=== PATIENT | female | born 2000 ===

== ENCOUNTER 2020-07-25 23:15 | Emergency (ER) | payer BC ==
[~2020-07-25] VITALS: Ht 162.6 cm; Wt 69.5 kg
[2020-07-25 23:30] VITALS: TEMP 98.7
[2020-07-26 02:27] LABS: BASO # 0.1 (0.0-0.2); BASO % 0.5 % (0.0-2.0); EOS # 0.3 (0.0-0.7); EOS % 2.7 % (0-4.0); GRAN # 6.7 (1.4-6.5); GRAN % 63.3 % (42.2-75.2); HEMATOCRIT 38.2 % (37.0-47.0); HEMOGLOBIN 12.7 g/dl (12.5-16.0); LYMPH # 2.9 (1.2-3.4); LYMPH % 27.3 % (20.0-51.0); MEAN CELL VOLUME 87 fl (80.0-100.0); MEAN CORPUSCULAR HEMOGLOBIN 29 pg (27.0-31.0); MEAN CORPUSCULAR HGB CONC 33 g/dl (33.0-37.0); MONO # 0.6 (0.1-0.6); MONO % 5.6 % (1.7-9.3); PLATELET COUNT 253 K/mm3 (130-400); RED BLOOD COUNT 4.38 M/mm3 (4.10-5.30); REDCELL DISTRIBUTION WIDTH-CV 12.8 % (11.5-14.5)
[2020-07-26 02:31] LABS: INR 1.1 (0.8-3.0)
[2020-07-26 02:34] LABS: PARTIAL THROMBOPLASTIN TIME 32.7 SECONDS (26.0-37.0)
[2020-07-26 02:37] LABS: ALANINE AMINOTRANSFERASE 17 U/L (4-34); ALBUMIN 4.5 gm/dL (3.5-5.0); ALKALINE PHOSPHATASE 64 U/L (50-136); ANION GAP 7 mmol/L (7-16); AST,SGOT 21 U/L (15-37); BILIRUBIN,TOTAL 0.5 mg/dL (0.0-1.0); BLOOD UREA NITROGEN 13 mg/dL (7-17); CALCIUM 9.1 mg/dL (8.4-10.2); CARBON DIOXIDE 27 mmol/L (22-30); CHLORIDE 106 mmol/L (98-107); CREATININE, serum 0.68 (0.52-1.25); GLUCOSE 98 mg/dL (74-106); LIPASE 48 U/L (23-300); SODIUM 140 mmol/L (137-145); TOTAL PROTEIN 7.4 gm/dL (6.4-8.2)
[2020-07-26 02:38] LABS: C-REACTIVE PROTEIN < 0.5 mg/dL (0.0-0.9)
[2020-07-26 03:08] LABS: COLLECTION METHOD CLEAN CATCH
[2020-07-26 03:16] LABS: MUCOUS Present /lpf; PH 5 (5-8); URINE APPEARANCE Hazy; URINE BACTERIA Rare /hpf; URINE BILIRUBIN Negative (NEGATIVE); URINE BLOOD Negative (NEGATIVE); URINE COLOR Yellow; URINE GLUCOSE Negative (NEGATIVE); URINE KETONE Negative (NEGATIVE); URINE LEUKOCYTE ESTERASE Negative (NEGATIVE); URINE NITRATE Negative (NEGATIVE); URINE PROTEIN(semi-quant) Negative (NEGATIVE); URINE RBC 0-2 /hpf; URINE UROBILINOGEN Negative (NEGATIVE)
[2020-07-26] MEDS ORDERED: ZOFRAN ODT4 MG PO (04:30)
[2020-07-26] MEDS ORDERED: CARAFATE 1GM1 G PO (04:30)
[2020-07-26] MEDS ORDERED: PRIL40 PO (04:30)
[2020-07-26 04:43] VITALS: BP 118/75; PULSE 82
== END 2020-07-26 04:43 | disposition home or self-care (01) ==
LOC: COL.ER 23:15
PROVIDERS: Emergency Medicine
DX: K29.70 Gastritis, unspecified, without bleeding (principal); K22.6 Gastro-esophageal laceration-hemorrhage syndrome; Z79.1 Long term (current) use of non-steroidal anti-inflammatories (NSAID)
CPT/HCPCS: C9113; J2550

== ENCOUNTER 2020-07-26 12:58 | Emergency (ER) | payer BC ==
[~2020-07-26] VITALS: Ht 162.6 cm; Wt 69.5 kg
[~2020-07-26 12:58] MED LIST: CARAFATE 1GM1 G PO; PRIL40 PO; ZOFRAN ODT4 MG PO
[2020-07-26 13:03] VITALS: TEMP 97
[2020-07-26 16:20] VITALS: BP 97/74; PULSE 86
== END 2020-07-26 16:22 | disposition home or self-care (01) ==
LOC: COL.ER 12:58
DX: R11.2 Nausea with vomiting, unspecified (principal); R10.31 Right lower quadrant pain; R10.32 Left lower quadrant pain; Z32.02 Encounter for pregnancy test, result negative
CPT/HCPCS: J2405; J7030; Q9967

== ENCOUNTER 2020-08-27 09:58 | Day surgery (SDC) | payer BC ==
[2020-08-27] VITALS (10 sets, daily range): BP systolic 98–125; BP diastolic 47–80; PULSE 71–88; TEMP 98.6–98.9
[~2020-08-27] VITALS: Ht 162.6 cm; Wt 70.0 kg
[~2020-08-27 09:58] MED LIST changes: +FLEXERIL5 MG PO; +LEVSIN0.125 M1 PO
== END 2020-08-27 13:20 | disposition home or self-care (01) ==
LOC: SDCO 09:58
DX: K92.0 Hematemesis (principal); F41.9 Anxiety disorder, unspecified; F32.9 Major depressive disorder, single episode, unspecified
CPT/HCPCS: J2405; J2704; J7030

== ENCOUNTER 2020-09-27 12:07 | Emergency (ER) | payer BC ==
[~2020-09-27] VITALS: Ht 162.6 cm; Wt 68.2 kg
[2020-09-27 12:10] VITALS: TEMP 98.1
[2020-09-27] MEDS ORDERED: ZOFRAN ODT4 MG PO (12:48)
[2020-09-27 12:49] VITALS: BP 111/76; PULSE 81
== END 2020-09-27 12:56 | disposition home or self-care (01) ==
LOC: COL.ER 12:07
DX: K29.71 Gastritis, unspecified, with bleeding (principal); M54.9 Dorsalgia, unspecified

== ENCOUNTER 2021-08-10 07:16 | Emergency (ER) | payer BC ==
[~2021-08-10] VITALS: Ht 162.6 cm; Wt 72.7 kg
[2021-08-10 07:23] VITALS: TEMP 97.5
[2021-08-10 07:42] LABS: BASO % 0.3 % (0.0-2.0); EOS % 0.4 % (0-4.0); GRAN # 7.3 K/mm3 (1.4-6.5); GRAN % 75.7 % (42.2-75.2); HEMATOCRIT 41.3 % (37.0-47.0); HEMOGLOBIN 13.9 g/dl (12.5-16.0); LYMPH # 1.9 K/mm3 (1.2-3.4); LYMPH % 19.1 % (20.0-51.0); MEAN CELL VOLUME 85 fl (80.0-100.0); MEAN CORPUSCULAR HEMOGLOBIN 29 pg (27.0-31.0); MEAN CORPUSCULAR HGB CONC 34 g/dl (33.0-37.0); MEAN PLATELET VOLUME 11.2 fl (7.4-10.4); MONO # 0.4 K/mm3 (0.1-0.6); PLATELET COUNT 358 K/mm3 (130-400); RED BLOOD COUNT 4.86 M/mm3 (4.10-5.30); REDCELL DISTRIBUTION WIDTH-CV 12.6 % (11.5-14.5)
[2021-08-10 07:51] LABS: COLLECTION METHOD CLEAN CATCH
[2021-08-10 07:57] LABS: ALANINE AMINOTRANSFERASE 12 U/L (0-55); ALKALINE PHOSPHATASE 85 U/L (40-150); ANION GAP 14 mmol/L (7-16); AST,SGOT 17 U/L (5-34); BILIRUBIN,TOTAL 0.6 mg/dL (0.2-1.2); BLOOD UREA NITROGEN 11 mg/dL (7-19); CALCIUM 10.1 mg/dL (8.4-10.2); CARBON DIOXIDE 19 mmol/L (22-29); CHLORIDE 106 mmol/L (98-107); CREATININE, serum 0.78 mg/dL (0.57-1.11); GLUCOSE 114 mg/dL (70-99); POTASSIUM 3.9 mmol/L (3.5-4.5); SODIUM 139 mmol/L (136-145)
[2021-08-10 07:58] LABS: ALCOHOL(ethanol),MEDICAL < 10 mg/dL (0-10); SALICYLATE < 5.0 mg/dL (15.0-30.0)
[2021-08-10 07:58] LABS: MUCOUS Present /lpf; PH 5 (5-8); URINE APPEARANCE Hazy; URINE BACTERIA None Seen /hpf; URINE BILIRUBIN Negative (NEGATIVE); URINE BLOOD Negative (NEGATIVE); URINE COLOR Yellow; URINE GLUCOSE Negative (NEGATIVE); URINE KETONE Trace (NEGATIVE); URINE LEUKOCYTE ESTERASE Negative (NEGATIVE); URINE NITRATE Negative (NEGATIVE); URINE PROTEIN(semi-quant) 1+ (NEGATIVE); URINE RBC 0-2 /hpf; URINE UROBILINOGEN Negative (NEGATIVE)
[2021-08-10 08:12] LABS: TRICYCLIC ANTIDEPRESS URINE NEGATIVE
[2021-08-10 08:17] LABS: TSH w REFLEX 1.924 uIU/mL (0.350-4.940)
[2021-08-10 16:19] VITALS: BP 115/79; PULSE 87
== END 2021-08-10 16:36 | disposition home or self-care (01) ==
LOC: COL.ER 07:16
PROVIDERS: Emergency Medicine
DX: T39.1X2A Poisoning by 4-Aminophenol derivatives, intentional self-harm, initial encounter (principal); T43.222A Poisoning by selective serotonin reuptake inhibitors, intentional self-harm, initial encounter; T50.992A Poisoning by other drugs, medicaments and biological substances, intentional self-harm, initial encounter
CPT/HCPCS: J2405; J7030